=== PATIENT | female | born 1965 | race Caucasian/White ===

== ENCOUNTER → 2018-01-30 15:49 | Outpatient (CLI) | payer OTHER, SELFPAY ==
--- NOTE | 2018-01-30 15:49 | DT_ITS ---
This patient was seen during an EMR downtime January 26, 2018 - February 02, 2018. This patient may have a combination of paper and electronic documentation or all paper documentation. All documentation is viewable within the e-chart portion of [employer] for each patient visit.
--- NOTE | 2018-01-30 15:52 | BI_ITS ---
MAMMOGRAPHY - BILATERAL SCREENING REASON FOR EXAM: Female, 52 years old. Routine annual screening examination. PERTINENT HISTORY: NO FAM HX GAINED 10# LT EXC BX 1998 TECHNIQUE: Digital bilateral breast aidan (3D mammographic acquisition) in the CC and MLO projections. 2-D mediolateral oblique (MLO) and craniocaudad (CC) views of both breasts were obtained. CAD: Full Field Digital Mammography with Computer Added Detection was performed. COMPARISON: 01/03/2017, 12/26/2015 and 12/20/2014 FINDINGS: Breast Composition: The breasts are heterogeneously dense, which may obscure small masses. There are no dominant masses or suspicious calcifications. No other significant abnormalities are identified. BI/SCREENING MAMM (CAD), BILAT IMPRESSION: Stable bilateral screening mammogram. Yearly follow-up mammogram recommended. (A) ASSESSMENT CATEGORY: BIRADS Category 2: Benign. A letter regarding these results will be sent to the patient by the facility within 30 days. Approximately 10% of breast cancers are not detected by mammography. A normal mammogram should not delay biopsy of a clinically suspicious abnormality. [id number] Electronically Signed: Carolyn Bear MD at 15:36 EDT Tel , Service support ,
== END ==
PROVIDERS: Family Provider Family Medicine; PCP Family Medicine; Visit Provider Obstetrics & Gynecology
DX: Z12.31 Encounter for screening mammogram for malignant neoplasm of breast (principal)
CPT/HCPCS: 77063; 77067

== ENCOUNTER → 2018-09-21 16:56 | Outpatient (CLI) | payer OTHER, SELFPAY ==
--- NOTE | 2018-09-21 17:00 | RAD_ITS ---
STUDY: X-RAY CHEST REASON FOR EXAM: Female, 52 years old. Cough, left lateral rib pain TECHNIQUE: PA and lateral views of the chest. COMPARISON: None. FINDINGS: The lungs are clear and expanded. There are small bilateral pleural effusions. There is mild pleural reaction of the lung bases. Normal size heart. Normal mediastinum and vladimir. Normal visualized pulmonary arteries. There are calcified plaques of the aortic arch. There is mild endplate spondylosis of the thoracic spine. Normal visualized ribs, clavicles, and shoulders. There is no demonstrated abnormality of the visualized soft tissue structures of the upper abdomen. RAD/Chest PA and Lateral IMPRESSION: Small bilateral pleural effusions. Mild pleural reaction of the lung bases. Calcified plaques of the aortic arch. End plate spondylosis of the thoracic spine. Electronically Signed: Guicho Prince MD at 16:53 EST , Service support ,
--- NOTE | 2018-09-21 17:01 | RAD_ITS ---
STUDY: X-RAY - UNILATERAL RIBS ( LEFT ) REASON FOR EXAM: Female, 52 years old. Cough, left lateral rib pain TECHNIQUE: 3 view(s) of the ribs. COMPARISON: None. FINDINGS: Normal visualized ribs without a demonstrated fracture. The visualized lung is clear and expanded. RAD/Ribs Unil 2V No CXR IMPRESSION: Normal x-ray examination of the ribs. Electronically Signed: Guicho Prince MD at 17:03 EST , Service support ,
== END ==
PROVIDERS: Family Provider Family Medicine; PCP Family Medicine; Referring Provider Family Medicine; Visit Provider Family Medicine
DX: R07.81 Pleurodynia (principal)
CPT/HCPCS: 71046; 71100

== ENCOUNTER → 2019-03-04 16:30 | Outpatient (CLI) | payer OTHER, SELFPAY ==
--- NOTE | 2019-03-04 16:33 | BI_ITS ---
MAMMOGRAPHY - BILATERAL SCREENING REASON FOR EXAM: Female, 53 years old. Routine annual screening examination. PERTINENT HISTORY: Non-contributory. TECHNIQUE: Digital bilateral breast dilcia (3D mammographic acquisition) in the CC and MLO projections. 2-D mediolateral oblique (MLO) and craniocaudad (CC) views of both breasts were obtained. CAD: Full Field Digital Mammography with Computer Added Detection was performed. COMPARISON: Comparison is made with prior study dated January 30, 2018 and January 03, 2017. FINDINGS: Breast Composition: The breasts are heterogeneously dense, which may obscure small masses. There are no dominant masses or suspicious calcifications. No other significant abnormalities are identified. There has been no significant change since the prior study. BI/SCREEN MAMM (CAD) W/DILCIA BILAT IMPRESSION: Stable bilateral screening mammogram. Yearly follow-up mammogram recommended. (A) ASSESSMENT CATEGORY: BIRADS Category 1: Negative. A letter regarding these results will be sent to the patient by the facility within 30 days. Approximately 10% of breast cancers are not detected by mammography. A normal mammogram should not delay biopsy of a clinically suspicious abnormality. [id number] Electronically Signed: Pee Chin, at 9:05 EDT , Service support ,
== END ==
PROVIDERS: Family Provider Family Medicine; PCP Family Medicine; Referring Provider Obstetrics & Gynecology; Visit Provider Obstetrics & Gynecology
DX: Z12.31 Encounter for screening mammogram for malignant neoplasm of breast (principal)
CPT/HCPCS: 77063; 77067

== ENCOUNTER → 2019-10-20 14:02 | Outpatient (CLI) | payer OTHER, SELFPAY ==
--- NOTE | 2019-10-20 14:11 | CDU_ITS ---
Reason For Study: Carotid Stenosis Rt. Velocities/BP Lt. Velocities/BP Prox CCA 93/29 cm/sec. Prox CCA 95/29 cm/sec. Mid CCA 88/31 cm/sec. Mid CCA 97/34 cm/sec. Dist CCA 62/22 cm/sec. Dist CCA 88/37 cm/sec. Prox ICA 187/58 cm/sec. Prox ICA 79/30 cm/sec. Mid ICA 130/41 cm/sec. Mid ICA 127/43 cm/sec. Dist ICA 82/31 cm/sec. Dist ICA 94/44 cm/sec. Rt. ICA/CCA = 2.1. Lt. ICA/CCA = 1.3. Prox ECA 161/13 cm/sec. Prox ECA 99/18 cm/sec. Rt. Vert. 66/20 cm/sec. Lt. Vert. 62/23 cm/sec. Right Extracranial There is heterogeneous, irregular atherosclerotic plaque noted in the right common carotid artery. There is heterogeneous, irregular atherosclerotic plaque noted in the right internal carotid artery. There is heterogeneous, irregular atherosclerotic plaque noted in the right external carotid artery. Antegrade flow is noted in the right vertebral artery. Left Extracranial There is heterogeneous, irregular atherosclerotic plaque noted in the left common carotid artery. There is heterogeneous, irregular atherosclerotic plaque noted in the left internal carotid artery. There is intimal thickening but no significant atherosclerotic plaque noted in the left external carotid artery. Antegrade flow is noted in the left vertebral artery. Procedure Carotid Duplex [id number]. Exam performed in department. Interpretation Summary Calcific plaque with shadowing distal right common carotidAnd proximal right external carotid and internal carotid arteries 50-69% stenosis right internal carotid <50% stenosis right external carotid Calcific plaque with shadowing left proximal internal and external carotid arteries 50-69% stenosis left internal carotid <50% stenosis left external carotid Patent, antegrade vertebrals bilaterally Ordering Physician: Nina Stubbs Referring Physician: Ayala Shanks Performed By: Nadya Farfan, MARCIA, RVT
== END ==
PROVIDERS: PCP Family Medicine; Referring Provider Family Medicine; Visit Provider Family Medicine
DX: I65.21 Occlusion and stenosis of right carotid artery (principal)
CPT/HCPCS: 93880

== ENCOUNTER → 2020-03-29 16:24 | Outpatient (CLI) | payer OTHER, SELFPAY ==
--- NOTE | 2020-03-29 16:25 | BI_ITS ---
MAMMOGRAPHY - BILATERAL SCREENING REASON FOR EXAM: Female, 54 years old. Routine annual screening examination. PERTINENT HISTORY: Non-contributory. History of remote left excisional breast biopsy. TECHNIQUE: Digital bilateral breast dilcia (3D mammographic acquisition) in the CC and MLO projections. 2-D mediolateral oblique (MLO) and craniocaudad (CC) views of both breasts were obtained. CAD: Full Field Digital Mammography with Computer Added Detection was performed. COMPARISON: Comparison is made with prior study dated 03/04/2019 and 01/30/2018 FINDINGS: Breast Composition: The breasts are heterogeneously dense, which may obscure small masses. There are no dominant masses or suspicious calcifications. Stable small benign-appearing bilateral axillary lymph nodes No other significant abnormalities are identified. There has been no significant change since the prior study. BI/SCREEN MAMM (CAD) W/DILCIA BILAT IMPRESSION: Stable bilateral screening mammogram. Yearly follow-up mammogram recommended. (A) ASSESSMENT CATEGORY: BIRADS Category 2: Benign. A letter regarding these results will be sent to the patient by the facility within 30 days. Approximately 10% of breast cancers are not detected by mammography. A normal mammogram should not delay biopsy of a clinically suspicious abnormality. [id number] Electronically Signed: Pee Chin, at 7:22 EDT , Service support ,
== END ==
PROVIDERS: PCP Family Medicine; Referring Provider Obstetrics & Gynecology; Visit Provider Obstetrics & Gynecology
DX: Z12.31 Encounter for screening mammogram for malignant neoplasm of breast (principal)
CPT/HCPCS: 77063; 77067

== ENCOUNTER → 2020-09-02 08:46 | Outpatient (CLI) | payer OTHER, SELFPAY ==
[2020-09-02 09:24] LABS: Cholesterol 225 mg/dL (200); High Density Lipoprotein 45 mg/dL; Triglycerides 89 mg/dL; Very Low Density Lipoprotein 18 mg/dL (5-40)
== END ==
PROVIDERS: PCP Family Medicine; Visit Provider Family Medicine
DX: E78.5 Hyperlipidemia, unspecified (principal)
CPT/HCPCS: 36415; 80061

== ENCOUNTER → 2022-07-10 | Outpatient (CLI) | payer OTHER, SELFPAY ==
--- NOTE | 2022-07-10 13:40 | CDU_ITS ---
Reason For Study: CAD, Stenosis Rt. Velocities/BP Lt. Velocities/BP Prox CCA 80.6/17.3 cm/sec. Prox CCA 91.2/26.2 cm/sec. Mid CCA 82.5/22 cm/sec. Mid CCA 76.5/29.8 cm/sec. Dist CCA 65.5/25.8 cm/sec. Dist CCA 81.4/26.2 cm/sec. Prox ICA 176.3/46.8 cm/sec. Prox ICA 66.7/24.9 cm/sec. Mid ICA 121.4/38 cm/sec. Mid ICA 95.5/33.4 cm/sec. Dist ICA 112.6/31.4 cm/sec. Dist ICA 95.5/37.1 cm/sec. Rt. ICA/CCA = 2.19. Lt. ICA/CCA = 1.17. Prox ECA 133.9/17 cm/sec. Prox ECA 75.3/15.1 cm/sec. Rt. Vert. 61.9/19 cm/sec. Lt. Vert. 53.5/16.8 cm/sec. Right Extracranial There is heterogeneous, irregular atherosclerotic plaque noted in the right common carotid artery. There is heterogeneous, irregular atherosclerotic plaque noted in the right internal carotid artery. There is heterogeneous, irregular atherosclerotic plaque noted in the right external carotid artery. Antegrade flow is noted in the right vertebral artery. Left Extracranial There is heterogeneous, irregular atherosclerotic plaque noted in the left common carotid artery. There is heterogeneous, irregular atherosclerotic plaque noted in the left internal carotid artery. There is intimal thickening but no significant atherosclerotic plaque noted in the left external carotid artery. Antegrade flow is noted in the left vertebral artery. Procedure Carotid Duplex [id number]. This is a Carotid Duplex examination using B-mode, color flow and specral Doppler. Exam performed in department. VL/Carotid Duplex Ultrasound Interpretation Summary Irregular calcific plaque with shadowing at the proximal right internal carotid artery with 50 to 69% stenosis. Less than 50% stenosis right external carotid artery Calcific plaque with shadowing at the proximal left internal carotid artery wit h less than 50% stenosis. Less than 50% stenosis left external carotid artery Patent and antegrade vertebral arteries bilaterally Compared to October 20, 2019 findings are similar on the right and the previou sly slightly elevated velocity within left internal carotid artery is not identified today with the c keenant interpretation being less than 50% stenosis of the left internal carotid Ordering Physician: Ayala Shanks Referring Physician: Ayala Shanks Performed By: Yaritza Rodriguez RVT
== END | disposition home or self-care (01) ==
PROVIDERS: PCP Family Medicine; Visit Provider Family Medicine
DX: I65.23 Occlusion and stenosis of bilateral carotid arteries (principal)
CPT/HCPCS: 93880

== ENCOUNTER → 2023-01-03 | Outpatient (CLI) | payer OTHER, SELFPAY ==
--- NOTE | 2023-01-03 06:28 | ECHOCS_ITS ---
Version 2 Reason For Study: SOB Procedure This was a 2D Doppler, Color Flow transthoracic echocardiogram. Myocardial strain analysis was performed in this exam to aid in the assessment of cardiac function. The study was technically difficult. Exam performed in department. Left Ventricle Normal LV size. Left ventricular systolic function is normal. The estimated ejection fraction is 60 %. Stage 1 diastolic dysfunction. No regional wall motion abnormalities noted. Right Ventricle Normal RV size. Normal systolic function. Atria Normal left atrium. Normal right atrium. Mitral Valve Normal mitral valve. Tricuspid Valve Normal tricuspid valve. Mild tricuspid valve insufficiency. Pulmonary artery systolic pressure is 24 mmHg. Aortic Valve Normal aortic valve. Trisinus/trileaflet aortic valve. Pulmonic Valve The pulmonic valve is not well visualized. Great Vessels Normal aortic root. The pulmonary artery is normal size. Normal inferior vena cava. Pericardium/Pleural No pericardial effusion. Medication Diluted definity 2ml given slow IV push to enhance endocardial definition. MMode/2D Measurements & Calculations LVIDd: 4.7 cm IVSd: 0.70 cm Ao root diam: 2.7 cm LVIDs: 3.1 cm LVPWd: 0.77 cm RVDd: 2.8 cm FS: 34.1 % LAV(MOD-bp): 31.8 ml LVAd ap4: 26.6 cm2 SV(MOD-sp4): 41.4 ml LAV(MOD-bp) Indexed: 16.9 ml/m2 LVLd ap4: 8.0 cm LAV(MOD-sp2): 32.9 ml EDV(MOD-sp4): 72.6 ml LAV(MOD-sp4): 30.6 ml EDV(sp4-el): 75.0 ml LVAs ap4: 15.2 cm2 LVLs ap4: 6.5 cm ESV(MOD-sp4): 31.2 ml ESV(sp4-el): 30.1 ml EF(MOD-sp4): 57.0 % EF(sp4-el): 59.8 % SV(sp4-el): 44.9 ml LA A4 area: 13.9 cm2 LA dimension(2D): 3.6 cm RA A4 area: 12.0 cm2 Time Measurements MV dec time: 0.25 sec Doppler Measurements & Calculations MV E max josé: 103.0 cm/sec Lat Peak E' José: 9.9 cm/sec Med Peak E' José: 12.4 cm/sec MV A max josé: 106.6 cm/sec E/E' lat: 10.4 E/E' med: 8.3 MV E/A: 0.97 Ao V2 max: 165.2 cm/sec LV V1 max: 98.6 cm/sec PA V2 max: 84.2 cm/sec Ao max P.9 mmHg LV V1 max P.9 mmHg TR max josé: 230.5 cm/sec TR max P.2 mmHg ECHO/Echo Complete W/ Contrast Interpretation Summary Normal LV size. Left ventricular systolic function is normal. The estimated ejection fraction is 60 %. Stage 1 diastolic dysfunction. Contrast injection was performed. The global longitudinal strain is normal. The global longitudinal strain = -17.9 % (normal). Ordering Physician: Thiago Denson Referring Physician: CHRISTOPHE DAVILA Performed By: Fabiola Spencer RDCS
[2023-01-03 08:13] LABS: AST(SGOT) 17 U/L (15-37); Alanine Aminotransfer ALT/SGPT 26 U/L (13-56); Albumin, Serum 3.4 g/dL (3.2-5.0); Alkaline Phosphatase 70 U/L (45-117); Bilirubin, Direct 0.11 mg/dL (0.00-0.30); Cholesterol 195 mg/dL (200); Globulin 3.6 g/dL (2.2-4.2); High Density Lipoprotein 55 mg/dL; Triglycerides 68 mg/dL; Very Low Density Lipoprotein 14 mg/dL (5-40)
--- NOTE | 2023-01-03 16:30 | STRESSREP ---
Stress Test Report Pharmacologic myocardial perfusion stress test. 57-year-old lady with a history of shortness of breath Resting EKG demonstrates sinus rhythm with a rate of 63 bpm. Resting blood pressure is 118/74 mmHg. 0.4 mg of regadenoson was infused per usual protocol followed by rapid intravenous saline flush injection. Continuous EKG monitoring was performed. The maximum heart rate was 88 bpm which was 54% of max impacted heart rate the maximum workload was 1 metabolic equivalent. At rest there were no ST or T wave changes noted to suggest ischemia and at peak infusion nonspecific ST changes were noted which did not meet the criteria for ischemia. No clinical angina is noted. The final blood pressure was 110/70 mmHg. Myocardial perfusion protocol. 14.7 mCi of technetium 99m sestamibi was injected at rest. 0.4 mg of regadenoson was infused per usual protocol. At peak infusion 44.1 mCi of technetium 99m sestamibi was injected stress images were obtained stress and rest images were reconstructed and compared in the short axis vertical long and horizontal long axis. Gated images were also obtained. Perfusion SPECT analysis: Review of the stress images demonstrate normal uptake of tracer noted in all areas of the myocardium. The resting images similar demonstrated normal uptake of tracer noted in all areas of the myocardium. No areas of reversibility are noted to suggest ischemia and no previous infarct is noted. Gated SPECT analysis: The gated ejection fraction is 62%. Conclusion: Normal pharmacologic myocardial perfusion stress test. Preserved ejection fraction.
== END | disposition home or self-care (01) ==
PROVIDERS: PCP Family Medicine; Referring Provider Internal Medicine Cardiovascular Disease; Visit Provider Internal Medicine Cardiovascular Disease
DX: R06.02 Shortness of breath (principal); I25.10 Atherosclerotic heart disease of native coronary artery without angina pectoris; E78.5 Hyperlipidemia, unspecified
CPT/HCPCS: 36415; 78452; 80061; 80076; 93017; 93306; A9500; Q9957; A4216; C8929; J2785

== ENCOUNTER → 2024-12-30 | Outpatient (CLI) | payer OTHER, SELFPAY ==
--- NOTE | 2024-12-30 14:59 | CDU_ITS ---
Reason For Study Reason For Study: Stenosis Rt. Velocities/BP Lt. Velocities/BP Prox CCA 76.5/24.8 cm/sec. Prox CCA 68.3/16.7 cm/sec. Mid CCA 72.1/24.8 cm/sec. Mid CCA 79.3/27.8 cm/sec. Dist CCA 64.4/24.8 cm/sec. Dist CCA 76.9/27.8 cm/sec. Prox ICA 189.4/34.3 cm/sec. Prox ICA 90.6/26.7 cm/sec. Mid ICA 126.4/43.0 cm/sec. Mid ICA 107.0/34.0 cm/sec. Dist ICA 64.6/27.8 cm/sec. Dist ICA 64.6/26.4 cm/sec. Rt. ICA/CCA = 2.6. Lt. ICA/CCA = 1.3. Prox ECA 150.6/29.9 cm/sec. Prox ECA 69.5/17.9 cm/sec. Rt. Vert. 62.1/20.4 cm/sec. Lt. Vert. 47.2/16.6 cm/sec. Right Extracranial There is homogeneous, smooth atherosclerotic plaque noted in the right common carotid artery. There is heterogeneous, irregular atherosclerotic plaque noted in the right internal carotid artery. The atherosclerotic plaque causes acoustic shadowing. There is heterogeneous, irregular atherosclerotic plaque noted in the right external carotid artery. The atherosclerotic plaque causes acoustic shadowing. Antegrade flow is noted in the right vertebral artery. Left Extracranial There is homogeneous, smooth atherosclerotic plaque noted in the left common carotid artery. There is heterogeneous, irregular atherosclerotic plaque noted in the left internal carotid artery. The atherosclerotic plaque causes acoustic shadowing. There is heterogeneous, irregular atherosclerotic plaque noted in the left external carotid artery. Antegrade flow is noted in the left vertebral artery. Procedure Carotid Duplex [id number]. This is a Carotid Duplex examination using B-mode, color flow and specral Doppler. Exam performed in department. VL/Carotid Duplex Ultrasound Interpretation Summary Moderate (50-69%) stenosis right extracranial internal carotid. Mild (<50%) stenosis left extracranial internal carotid. Patent and antegrade vertebrals bilaterally. Ordering Physician: Ayala Shanks Referring Physician: Ayala Shanks Performed By: Tanya Jefferson RVT
== END | disposition home or self-care (01) ==
LOC: CVS 14:57
PROVIDERS: PCP Family Medicine; Referring Provider Family Medicine; Visit Provider Family Medicine
DX: I65.23 Occlusion and stenosis of bilateral carotid arteries (principal)
CPT/HCPCS: 93880